=== PATIENT | male | born 1995 | race Caucasian/White ===

== ENCOUNTER 2018-01-21 18:16 | Emergency (ER) | payer OTHER ==
[2018-01-21] MEDS ORDERED: DEXAMETHASONE SOD PHOSPHATE 10 MG/ML 1 ML VIAL IM STA (21:45)
[2018-01-21] MEDS ORDERED: IPRATROPIUM-ALBUTEROL 3 ML NEB INHALATION STA (21:45)
--- NOTE | 2018-01-21 21:47 | ED ---
General Adult HPI - General Chief complaint: Upper Respiratory Infection Stated complaint: vomiting/congestion Time Seen by Provider: 01/21/18 21:41 Source: patient, RN notes reviewed, old records reviewed Mode of arrival: ambulatory Limitations: no limitations - History of Present Illness Initial comments: 22 -year-old male presents with 3 days of nasal congestion, cough, sore throat and nausea. Patient states his cough is nonproductive. Nasal discharge is clear. No fever or chills. No chest pain. He is complaining of some dyspnea associated with his cough. Has no history of asthma. No chronic medical problems. Patient is eating and drinking normally. - Related Data Home Medications Medication Instructions Recorded Confirmed Phenyleph/Acetaminophn/Doxylam 2 cap PO BID 01/21/18 01/21/18 [Vicks Dayquil-Nyquil Sinex Cap] Pseudoephedrine HCl 30 mg PO DAILY 01/21/18 01/21/18 Previous Rx's Medication Instructions Recorded Albuterol Inhaler [Ventolin Hfa 1 - 2 puff INHALATION Q4HR PRN #1 01/21/18 Inhaler] inhaler methylPREDNISolone Dose Pack 4 mg PO DIRECTED #21 package 01/21/18 [Medrol Dose Pack] Allergies Allergy/AdvReac Type Severity Reaction Status Date / Time No Known Allergies Allergy Verified 01/21/18 21:53 Review of Systems ROS Statement: Those systems with pertinent positive or pertinent negative responses have been documented in the HPI. ROS Other: All systems not noted in ROS Statement are negative. Past Medical History Past Medical History: No Reported History History of Any Multi-Drug Resistant Organisms: None Reported Past Surgical History: No Surgical Hx Reported Past Psychological History: No Psychological Hx Reported Smoking Status: Never smoker Past Alcohol Use History: Rare Past Drug Use History: None Reported General Exam Limitations: no limitations General appearance: alert, in no apparent distress Head exam: Present: atraumatic, normocephalic Eye exam: Present: normal appearance, PERRL ENT exam: Present: mucous membranes moist, other (Clear rhinorrhea, mild pharyngeal erythema, no tonsillar swelling or exudate) Neck exam: Present: normal inspection. Absent: tenderness, meningismus Respiratory exam: Present: other (Bronchospastic cough). Absent: respiratory distress Cardiovascular Exam: Present: regular rate, normal rhythm GI/Abdominal exam: Present: soft. Absent: distended, tenderness, guarding Extremities exam: Present: normal inspection, normal capillary refill. Absent: pedal edema Neurological exam: Present: alert, oriented X3, CN II-XII intact. Absent: motor sensory deficit Psychiatric exam: Present: normal affect, normal mood Skin exam: Present: warm, dry, intact. Absent: cyanosis, diaphoretic Course Vital Signs 01/21/18 19:00 Temperature 98.7 F Pulse Rate 90 Respiratory 18 Rate Blood Pressure 149/85 O2 Sat by Pulse 99 Oximetry Medical Decision Making - Medical Decision Making 22-year-old male with nasal congestion, sore throat, and cough. Patient does have some mild dyspnea. He has proximal past cough. Given albuterol and Decadron in the emergency department. On reevaluation he is feeling better, no dyspnea. Patient receives chest x-ray the emergency department which is negative for focal pneumonia. He will be treated for viral upper respiratory tract infection and bronchospasm. Given Medrol Dosepak and albuterol. Disposition Clinical Impression: Viral infection, Bronchitis Disposition: HOME SELF-CARE Condition: Good Instructions: Upper Respiratory Infection (ED), Acute Bronchitis (ED) Prescriptions: Albuterol Inhaler [Ventolin Hfa Inhaler] 1 - 2 puff INHALATION Q4HR PRN #1 inhaler PRN Reason: Shortness Of Breath methylPREDNISolone Dose Pack [Medrol Dose Pack] 4 mg PO DIRECTED #21 package Is patient prescribed a controlled substance at d/c from ED?: No Referrals: Sawyer Dowell MD [Primary Care Provider] - 1-2 days Time of Disposition: 22:43
--- NOTE | 2018-01-21 22:34 | XR ---
EXAMINATION TYPE: XR chest 2V DATE OF EXAM: 01/21/2018 COMPARISON: 05/30/2007 HISTORY: Cough TECHNIQUE: Frontal and lateral views of the chest are obtained. FINDINGS: Heart and mediastinum are normal. Lungs are clear. Diaphragm is normal. Bony thorax appear s normal. IMPRESSION: Normal chest. No change.
[2018-01-21 22:57] VITALS: BP 137/80; PULSE 88; RESP 18; TEMP 98.7
== END 2018-01-21 22:50 | disposition home or self-care (01) ==
LOC: EC 18:16
DX: J40 Bronchitis, not specified as acute or chronic (principal); J98.01 Acute bronchospasm; J06.9 Acute upper respiratory infection, unspecified; R11.2 Nausea with vomiting, unspecified; Z79.899 Other long term (current) drug therapy
CPT/HCPCS: 94640; 71046; 99284; 96372; J1100

== ENCOUNTER 2021-01-07 16:42 | Emergency (ER) | payer BC ==
--- NOTE | 2021-01-07 17:52 | XR ---
EXAMINATION TYPE: XR ankle complete RT DATE OF EXAM: 01/07/2021 COMPARISON: NONE HISTORY: Swelling TECHNIQUE: 3 views FINDINGS: Ankle mortise is anatomic. I see no fracture nor dislocation. Joint spaces are normal. IMPRESSION: Negative right ankle exam. No fracture. Minimal lateral soft tissue swelling.
--- NOTE | 2021-01-07 19:04 | ED ---
General Adult HPI - General Chief complaint: Extremity Injury, Lower Stated complaint: rt ankle injury Time Seen by Provider: 01/07/21 18:42 Source: patient, RN notes reviewed Mode of arrival: ambulatory Limitations: no limitations - History of Present Illness Initial comments: 25-year-old male presents to the emergency room for a chief complaint of right foot pain. Patient rolled his ankle about a week ago but has been having pain in his foot. States he noticed bruising that just started in the past couple days. Patient wants to make sure it is not broken. States it is somewhat tender on the lateral aspect of the foot. He has been able to walk on it.Patient has no other complaints at this time including shortness of breath, chest pain, abdominal pain, nausea or vomiting, headache, or visual changes. - Related Data Home Medications Medication Instructions Recorded Confirmed Phenyleph/Acetaminophn/Doxylam 2 cap PO BID 01/21/18 01/21/18 [Vicks Dayquil-Nyquil Sinex Cap] Pseudoephedrine HCl 30 mg PO DAILY 01/21/18 01/21/18 Previous Rx's Medication Instructions Recorded Albuterol Inhaler (Mhu) [Ventolin 1 - 2 puff INHALATION Q4HR PRN #1 01/21/18 Hfa Inhaler (Mhu)] inhaler methylPREDNISolone Dose Pack 4 mg PO DIRECTED #21 package 01/21/18 [Medrol Dose Pack] Allergies Allergy/AdvReac Type Severity Reaction Status Date / Time No Known Allergies Allergy Verified 01/07/21 16:58 Review of Systems ROS Statement: Those systems with pertinent positive or pertinent negative responses have been documented in the HPI. ROS Other: All systems not noted in ROS Statement are negative. Past Medical History Past Medical History: No Reported History History of Any Multi-Drug Resistant Organisms: None Reported Past Surgical History: No Surgical Hx Reported Past Psychological History: No Psychological Hx Reported Smoking Status: Never smoker Past Alcohol Use History: Rare Past Drug Use History: None Reported General Exam Limitations: no limitations General appearance: alert, in no apparent distress Head exam: Present: atraumatic Eye exam: Present: normal appearance, PERRL, EOMI. Absent: scleral icterus, conjunctival injection ENT exam: Present: normal exam, mucous membranes moist Neck exam: Present: normal inspection, full ROM. Absent: tenderness Respiratory exam: Present: normal lung sounds bilaterally. Absent: respiratory distress, wheezes Cardiovascular Exam: Present: regular rate, normal rhythm, normal heart sounds Extremities exam: Present: tenderness (minimal tenderness to the dorsal lateral aspect of the right foot however now over the fifth metatarsal. No tenderness of the ankle.), normal capillary refill (Capillary refill less than 2 seconds, DP pulse 2+ right lower extremity), joint swelling (minimal ecchymosis noted of the dorsal distal right foot.) Course Vital Signs 01/07/21 16:56 Temperature 97.9 F Pulse Rate 86 Respiratory 20 Rate Blood Pressure 172/92 O2 Sat by Pulse 99 Oximetry Medical Decision Making - Medical Decision Making Right foot and ankle x-rays are negative. Patient likely has a sprain of the right foot. Given he has been walking on this and symptoms started a week ago I do not suspect occult fracture. He will follow up with primary care or thopedics. He will return here for any worsening symptoms. Disposition Clinical Impression: Foot contusion Disposition: HOME SELF-CARE Condition: Good Instructions (If sedation given, give patient instructions): Foot Sprain (ED) Additional Instructions: Please take Motrin and Tylenol for pain. Rest ice and elevate the right foot. Follow-up with orthopedics. Return to the emergency room for any worsening symptoms. Is patient prescribed a controlled substance at d/c from ED?: No Referrals: Sawyer Dowell MD [Primary Care Provider] - 1-2 days Lindsay Teague DO [Doctor of Osteopathic Medicine] - 1-2 days Time of Disposition: 19:13
--- NOTE | 2021-01-07 19:04 | XR ---
EXAMINATION TYPE: XR foot complete RT DATE OF EXAM: 01/07/2021 COMPARISON: NONE HISTORY: Foot pain and swelling TECHNIQUE: 3 views FINDINGS: Metatarsals are intact. I see no fracture nor dislocation. IMPRESSION: Negative right foot exam. No fracture.
[2021-01-07 19:29] VITALS: BP 162/89; PULSE 81; RESP 18; TEMP 97.8
== END 2021-01-07 19:29 | disposition home or self-care (01) ==
LOC: EC 16:42
DX: S90.31XA Contusion of right foot, initial encounter (principal); X58.XXXA Exposure to other specified factors, initial encounter
CPT/HCPCS: 99283

== ENCOUNTER 2021-06-24 16:49 | Emergency (ER) | payer BC ==
[2021-06-24 17:12] VITALS: RESP 18; TEMP 98.7
--- NOTE | 2021-06-24 17:59 | XR ---
EXAMINATION TYPE: XR chest 2V DATE OF EXAM: 06/24/2021 COMPARISON: 01/21/2018 HISTORY: Pain TECHNIQUE: 2 view FINDINGS: Heart and mediastinum are normal. Lungs are clear. Diaphragm is normal. Bony thorax appears normal. IMPRESSION: Multiple chest but no change.
[2021-06-24] MEDS ORDERED: IPRATROPIUM-ALBUTEROL 3 ML NEB INHALATION STA (20:00)
[2021-06-24] MEDS ORDERED: BENZONATATE 100 MG CAP PO STA (20:00)
[2021-06-24] MEDS ORDERED: predniSONE 20 MG TAB PO STA (20:00)
--- NOTE | 2021-06-24 20:01 | ED ---
URI HPI - General Chief Complaint: Upper Respiratory Infection Stated Complaint: SOB Time Seen by Provider: 06/24/21 19:30 Source: patient Mode of arrival: ambulatory Limitations: no limitations - History of Present Illness Initial Comments: 25-year-old male presents emergency department for upper respiratory symptoms for the past 2 weeks. Admits to nasal congestion, sinus pressure, sore throat and a cough. Denies any sick contacts. He is taking Dayquil at home for symptoms without any improvement. Denies fevers. No chest pain. No history of pulmonary or cardiac issues. He is not vaccinated against Covid. No history of asthma. Patient is a nonsmoker. He has had some posttussive emesis. No other alleviating, precipitating or modifying factors - Related Data Home Medications Medication Instructions Recorded Confirmed Phenyleph/Acetaminophn/Doxylam 2 cap PO BID 01/21/18 01/21/18 [Vicks Dayquil-Nyquil Sinex Cap] Pseudoephedrine HCl 30 mg PO DAILY 01/21/18 01/21/18 Previous Rx's Medication Instructions Recorded Albuterol Inhaler (Mhu) [Ventolin 1 - 2 puff INHALATION Q4HR PRN #1 01/21/18 Hfa Inhaler (Mhu)] inhaler methylPREDNISolone Dose Pack 4 mg PO DIRECTED #21 package 01/21/18 [Medrol Dose Pack] Albuterol Inhaler [Ventolin Hfa 1 puff INHALATION RT-QID #8 gm 06/24/21 Inhaler] Benzonatate [Tessalon Perles] 100 mg PO TID PRN #30 capsule 06/24/21 predniSONE [Deltasone] 20 mg PO BID #10 tab 06/24/21 Allergies Allergy/AdvReac Type Severity Reaction Status Date / Time No Known Allergies Allergy Verified 01/07/21 16:58 Review of Systems ROS Statement: Those systems with pertinent positive or pertinent negative responses have been documented in the HPI. ROS Other: All systems not noted in ROS Statement are negative. Past Medical History Past Medical History: No Reported History History of Any Multi-Drug Resistant Organisms: None Reported Past Surgical History: No Surgical Hx Reported Past Psychological History: No Psychological Hx Reported Smoking Status: Never smoker Past Alcohol Use History: Rare Past Drug Use History: None Reported General Exam Limitations: no limitations General appearance: alert, in no apparent distress Head exam: Present: atraumatic, normocephalic, normal inspection Eye exam: Present: normal appearance, PERRL, EOMI. Absent: scleral icterus, conjunctival injection, periorbital swelling ENT exam: Present: normal exam, mucous membranes moist Neck exam: Present: normal inspection. Absent: tenderness, meningismus, lymphadenopathy Respiratory exam: Present: normal lung sounds bilaterally, other (bronchospastic cough). Absent: respiratory distress, wheezes, rales, rhonchi, stridor Cardiovascular Exam: Present: regular rate, normal rhythm, normal heart sounds. Absent: systolic murmur, diastolic murmur, rubs, gallop, clicks GI/Abdominal exam: Present: soft, normal bowel sounds. Absent: distended, tenderness, guarding, rebound, rigid Extremities exam: Present: normal inspection, full ROM, normal capillary refill. Absent: tenderness, pedal edema, joint swelling, calf tenderness Back exam: Present: normal inspection Neurological exam: Present: alert, oriented X3, CN II-XII intact Psychiatric exam: Present: normal affect, normal mood Skin exam: Present: warm, dry, intact, normal color. Absent: rash Course Vital Signs 06/24/21 06/24/21 06/24/21 17:10 20:11 20:20 Temperature 98.7 F Pulse Rate 83 80 78 Respiratory 18 18 Rate Blood Pressure 130/77 128/71 O2 Sat by Pulse 98 Oximetry 06/24/21 20:22 Temperature Pulse Rate 80 Respiratory Rate Blood Pressure O2 Sat by Pulse Oximetry Medical Decision Making - Medical Decision Making Upon arrival patient was placed into room 30. A thorough history and physical exam was performed. Lung sounds are clear. No signs of respiratory distress. Patient is given a DuoNeb breathing treatment for bronchospasm. A swab for Covid which is negative. Chest x-ray negative for pneumonia. Patient will be treated with prednisone, albuterol inhaler and Tessalon Perles. Instructed follow up with his primary care doctor and return for any new or worsening symptoms. Patient agreed to treatment and he was discharged home in stable condition - Lab Data Lab Results 06/24/21 Range/Units 17:15 Coronavirus (PCR) Not Detected (Not Detectd) Disposition Clinical Impression: Cough, Bronchospasm Disposition: HOME SELF-CARE Condition: Stable Instructions (If sedation given, give patient instructions): Upper Respiratory Infection (ED) Additional Instructions: Take the medications as prescribed. Follow up with your doctor in 2-4 days and return for any new or worsening symptoms . Prescriptions: predniSONE [Deltasone] 20 mg PO BID #10 tab Benzonatate [Tessalon Perles] 100 mg PO TID PRN #30 capsule PRN Reason: Cough Albuterol Inhaler [Ventolin Hfa Inhaler] 1 puff INHALATION RT-QID #8 gm Is patient prescribed a controlled substance at d/c from ED?: No Referrals: Sawyer Dowell MD [Primary Care Provider] - 1-2 days Time of Disposition: 20:23
[2021-06-24 20:14] VITALS: PULSE 80
[2021-06-24 20:40] VITALS: BP 128/71
== END 2021-06-24 20:42 | disposition home or self-care (01) ==
LOC: EC 16:49
DX: J98.01 Acute bronchospasm (principal); Z20.822 Contact with and (suspected) exposure to COVID-19
CPT/HCPCS: 94640; 87635; 71046; 99285; J7512

== ENCOUNTER 2022-08-12 22:11 | Emergency (ER) | payer BC ==
[2022-08-12 22:34] LABS: Basophils % (A) 0 %; Eosinophils # (A) 0.4 k/uL (0-0.7); Eosinophils % (A) 4 %; HCT 48.1 % (39.0-53.0); HGB 16.2 gm/dL (13.0-17.5); Lymphocytes # (A) 5.3 k/uL (1.0-4.8); Lymphocytes % (A) 51 %; MCHC 33.7 g/dL (31.0-37.0); MCV 91.8 fL (80.0-100.0); Mean Platelet Volume 7.8; Monocytes # (A) 0.6 k/uL (0-1.0); Monocytes % (A) 6 %; Neutrophils # (A) 3.9 k/uL (1.3-7.7); Neutrophils % (A) 37 %; Platelet Count 262 k/uL (150-450); RBC 5.25 m/uL (4.30-5.90); RDW 12.4 % (11.5-15.5); WBC 10.5 k/uL (3.8-10.6)
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
[2022-08-12 22:53] LABS: Prothrombin Time 10.3 sec (9.0-12.0)
[2022-08-12 22:56] LABS: ALT 20 U/L (4-49); AST 22 U/L (17-59); African American GFR (CKD) >90 (>60 ml/min/1.73 sqM); Albumin 4.7 g/dL (3.5-5.0); Alkaline Phosphatase 66 U/L (38-126); Anion Gap 13 mmol/L; Blood Urea Nitrogen 16 mg/dL (9-20); Calcium 9.6 mg/dL (8.4-10.2); Carbon Dioxide 23 mmol/L (22-30); Chloride 106 mmol/L (98-107); Glucose 101 mg/dL (74-99); Magnesium 1.8 mg/dL (1.6-2.3); Non-African American GFR(CKD) >90 (>60 ml/min/1.73 sqM); Potassium 3.5 mmol/L (3.5-5.1); Sodium 142 mmol/L (137-145); Total Bilirubin 0.6 mg/dL (0.2-1.3); Total Protein 8.1 g/dL (6.3-8.2)
--- NOTE | 2022-08-12 23:33 | XR ---
EXAMINATION TYPE: XR chest 2V DATE OF EXAM: 08/12/2022 COMPARISON: 06/24/2021 INDICATION: Chest pain TECHNIQUE: Frontal and lateral views of the chest are obtained. FINDINGS: The heart size is normal. The pulmonary vasculature is normal. The lungs are clear. IMPRESSION: 1. No acute pulmonary process.
[2022-08-13 00:44] VITALS: BP 134/87; PULSE 68; RESP 16; TEMP 98.2
== END 2022-08-13 00:30 | disposition home or self-care (01) ==
LOC: EC 22:11
DX: F43.9 Reaction to severe stress, unspecified (principal)
CPT/HCPCS: 36415; 71046; 80053; 83735; 84484; 85025; 85610; 85730; 93005; 99285

== ENCOUNTER 2023-02-14 16:51 | Emergency (ER) | payer BC, OTHER ==
--- NOTE | 2023-02-14 17:00 | ED ---
URI HPI - General Stated Complaint: cough Time Seen by Provider: 02/14/23 16:59 Source: patient, RN notes reviewed - History of Present Illness Initial Comments: Patient is a 27-year-old male presented ER chief complaint of cough. Patient states it's been going on for about a week. Patient denies any chest pain but does endorse mild shortness of breath with coughing. Patient does state that his cough is worse at night and in the morning. He does report nasal drainage. Patient denies any fevers, chills, night sweats. - Related Data Home Medications Medication Instructions Recorded Confirmed Phenyleph/Acetaminophn/Doxylam 2 cap PO BID 01/21/18 01/21/18 [Vicks Dayquil-Nyquil Sinex Cap] Pseudoephedrine HCl 30 mg PO DAILY 01/21/18 01/21/18 Previous Rx's Medication Instructions Recorded Albuterol Inhaler [Ventolin Hfa 1 - 2 puff INHALATION Q4HR PRN #1 01/21/18 Inhaler] inhaler methylPREDNISolone Dose Pack 4 mg PO DIRECTED #21 package 01/21/18 [Medrol Dose Pack] Albuterol Inhaler [Ventolin Hfa 1 puff INHALATION RT-QID #8 gm 06/24/21 Inhaler] Benzonatate [Tessalon Perles] 100 mg PO TID PRN #30 capsule 06/24/21 predniSONE [Deltasone] 20 mg PO BID #10 tab 06/24/21 Allergies Allergy/AdvReac Type Severity Reaction Status Date / Time No Known Allergies Allergy Verified 02/14/23 17:04 Review of Systems ROS Statement: Those systems with pertinent positive or pertinent negative responses have been documented in the HPI. ROS Other: All systems not noted in ROS Statement are negative. Past Medical History Past Medical History: No Reported History Additional Past Medical History / Comment(s): autism History of Any Multi-Drug Resistant Organisms: None Reported Past Surgical History: No Surgical Hx Reported Past Psychological History: No Psychological Hx Reported Smoking Status: Never smoker Past Alcohol Use History: Occasional Past Drug Use History: None Reported General Exam - General Exam Comments Initial Comments: Visual Physical Exam Vital signs reviewed General: Well-appearing, nontoxic, no acute distress. Head: Normocephalic, atraumatic Eyes: PERRLA, EOMI ENT: Airway patent Chest: Nonlabored breathing Skin: No visual rash, normal skin tone Neuro: Alert and oriented 3 Musculoskeletal: No gross abnormalities General appearance: alert, in no apparent distress ENT exam: Present: normal exam, mucous membranes moist Respiratory exam: Present: normal lung sounds bilaterally. Absent: respiratory distress, wheezes, rales, rhonchi, stridor Cardiovascular Exam: Present: regular rate, normal rhythm, normal heart sounds. Absent: systolic murmur, diastolic murmur, rubs, gallop, clicks Neurological exam: Present: alert, oriented X3, CN II-XII intact Psychiatric exam: Present: normal affect, normal mood Skin exam: Present: warm, dry, intact, normal color. Absent: rash Course Vital Signs 02/14/23 17:01 Temperature 98.0 F Pulse Rate 88 Respiratory 16 Rate Blood Pressure 146/88 O2 Sat by Pulse 96 Oximetry Medical Decision Making - Medical Decision Making I performed the quick note portion of the exam. Electronically signed by Honey Marquez PA-C Was pt. sent in by a medical professional or institution ([facility], [facility], urgent care, hospital, or [facility]...) When possible be specific @ -No Did you speak to anyone other than the patient for history (EMS, parent, family, police, friend...)? What history was obtained from this source @ -No Did you review nursing and triage notes (agree or disagree)? Why? @ -I reviewed and agree with nursing and triage notes Were old charts reviewed (outside hosp., previous admission, EMS record, old EKG, old radiological studies, urgent care reports/EKG's, [facility] records)? Report findings @ -No old charts were reviewed Differential Diagnosis (chest pain, altered mental status, abdominal pain women, abdominal pain men, vaginal bleeding, weakness, fever, dyspnea, syncope, headache, dizziness, GI bleed, back pain, seizure, CVA, palpatations, mental health, musculoskeletal)? @ -COVID-19, RSV, influenza, pneumonia, viral sinusitis EKG interpreted by me (3pts min.). @ -None X-rays interpreted by me (1pt min.). @ -Chest x-rays interpreted by me shows no acute cardiopulmonary process. CT interpreted by me (1pt min.). @ -None done U/S interpreted by me (1pt. min.). @ -None done What testing was considered but not performed or refused? (CT, X-rays, U/S, labs)? Why? @ -None What meds were considered but not given or refused? Why? @ -None Did you discuss the management of the patient with other professionals (professionals i.e. , PA, [facility], lab, RT, psych nurse, social insurance administrator, trial lawyer, teacher, sales promotion officer, returned case inspector)? Give summary @ -No Was smoking cessation discussed for >3mins.? @ -No Was critical care preformed (if so, how long)? @ -No Were there social determinants of health that impacted care today? How? (Homelessness, low income, unemployed, alcoholism, drug addiction, transportation, low edu. Level, literacy, decrease access to med. care, alf, rehab)? @ -No Was there de-escalation of care discussed even if they declined (Discuss DNR or withdrawal of care, Hospice)? DNR status @ -No What co-morbidities impacted this encounter? (DM, HTN, Smoking, COPD, CAD, Cancer, CVA, ARF, Chemo, Hep., AIDS, mental health diagnosis, sleep apnea, morbid obesity)? @ -None Was patient admitted / discharged? Hospital course, mention meds given and route, prescriptions, significant lab abnormalities, going to OR and other pertinent info. @ -Discharge. Viral swabs to the ER were negative. Chest x-ray interpretation shows no acute process. Patient's vital signs are stable. I advised patient to use [id number] Tylenol and Motrin for pain and fever control. I suggested he take an anti-histamine for post nasal drip. Patient be discharged in stable condition with follow-up to PCP. Return parameters were discussed. Patient expressed understanding and agreement with care plan. Undiagnosed new problem with uncertain prognosis? @ -No Drug Therapy requiring intensive monitoring for toxicity (Heparin, Nitro, Insulin, Cardizem)? @ -No Were any procedures done? @ -No Diagnosis/symptom? @ -Viral sinusitis/postnasal drip Acute, or Chronic, or Acute on Chronic? @ -Acute Uncomplicated (without systemic symptoms) or Complicated (systemic symptoms)? @ -Uncomplicated Side effects of treatment? @ -No Exacerbation, Progression, or Severe Exacerbation? @ -No Poses a threat to life or bodily function? How? (Chest pain, [place], [place], pneumonia, PE, COPD, DKA, ARF, appy, cholecystitis, CVA, Diverticulitis, Homicidal, Suicidal, threat to staff... and all critical care pts) @ -No - Lab Data Lab Results 02/14/23 Range/Units 17:04 Influenza Type A (PCR) Not Detected (Not Detectd) Influenza Type B (PCR) Not Detected (Not Detectd) RSV (PCR) Not Detected (Not Detectd) SARS-CoV-2 (PCR) Not Detected (Not Detectd) - Radiology Data Radiology results: report reviewed, image reviewed Disposition Clinical Impression: Viral sinusitis Disposition: HOME SELF-CARE Condition: Stable Additional Instructions: Please use [id number] Tylenol and Motrin for fever and symptom control. Please return to the ER for any new or worsening symptoms. Is patient prescribed a controlled substance at d/c from ED?: No Referrals: Sawyer Dowell [Primary Care Provider] - 1-2 days Time of Disposition: 18:54
[2023-02-14 17:12] VITALS: BP 146/88; PULSE 88; RESP 16; TEMP 98
--- NOTE | 2023-02-14 17:34 | XR ---
EXAMINATION TYPE: XR chest 2V DATE OF EXAM: 02/14/2023 5:13 PM CLINICAL INDICATION:Male, 27 years old with history of cough; COMPARISON: 08/12/2022 TECHNIQUE: XR chest 2V Frontal and lateral views of the chest. FINDINGS: Lungs/Pleura: There is no evidence of pleural effusion, focal consolidation, or pneumothorax. Pulmonary vascularity: Unremarkable. Heart/mediastinum: Cardiomediastinal silhouette is unremarkable. Musculoskeletal: No acute osseous pathology. Other findings: None IMPRESSION: No acute cardiopulmonary disease/process.
== END 2023-02-14 19:13 | disposition home or self-care (01) ==
LOC: EC 16:51
DX: J32.9 Chronic sinusitis, unspecified (principal); Z20.822 Contact with and (suspected) exposure to COVID-19
CPT/HCPCS: 71046; 87636; 99283

== ENCOUNTER 2024-04-11 14:48 | Inpatient (IN) | payer OTHER ==
--- NOTE | 2024-04-11 15:37 | ED ---
General Adult HPI - General Chief complaint: Psychiatric Symptoms Stated complaint: Mental Health Time Seen by Provider: 04/11/24 15:06 Source: patient Mode of arrival: ambulatory - History of Present Illness Initial comments: Dictation was produced using [employer] dictation software. please excuse any grammatical, word or spelling errors. Chief Complaint: 28-year-old male presents to the emergency department with homicidal intent History of Present Illness: Patient is a 28-year-old autistic male presents with mother and significant other. Patient just got fired from his job. Patient was upset made some homicidal threats. Patient called his mother and mother brought patient to the emergency department. Patient states he was fired up because of what happened today. States that he feels apologetic. He does have knives and other weapons at home. Denies any suicidal ideation. No visual auditory hallucinations. Patient has not been in the emergency department for anything like this in the past. The ROS documented in this emergency department record has been reviewed and confirmed by me. Those systems with pertinent positive or negative responses have been documented in the HPI. All other systems are other negative and/or noncontributory. - Related Data Home Medications Medication Instructions Recorded Confirmed No Known Home Medications 04/11/24 04/11/24 Allergies Allergy/AdvReac Type Severity Reaction Status Date / Time lactose AdvReac Nausea & Verified 04/11/24 17:02 Vomiting Review of Systems ROS Statement: Those systems with pertinent positive or pertinent negative responses have been documented in the HPI. ROS Other: All systems not noted in ROS Statement are negative. Past Medical History Past Medical History: No Reported History Additional Past Medical History / Comment(s): autism History of Any Multi-Drug Resistant Organisms: None Reported Past Surgical History: No Surgical Hx Reported Past Psychological History: ADD/ADHD Smoking Status: Never smoker Past Alcohol Use History: Occasional Past Drug Use History: None Reported General Exam - General Exam Comments Initial Comments: General: Well-appearing, nontoxic, no acute distress. Head: Normocephalic, atraumatic Eyes: PERRLA, EOMI ENT: Airway patent Chest: Nonlabored breathing Skin: No visual rash, normal skin tone Neuro: Alert and oriented 3 Musculoskeletal: No gross abnormalities Course Vital Signs 04/11/24 14:58 Temperature 98.2 F Pulse Rate 81 Respiratory 16 Rate Blood Pressure 140/92 O2 Sat by Pulse 98 Oximetry Medical Decision Making - Medical Decision Making Was pt. sent in by a medical professional or institution (, PA, [employer], urgent care, hospital, or care home...) When possible be specific @ -No Did you speak to anyone other than the patient for history (EMS, parent, family, police, friend...)? What history was obtained from this source @ -No Did you review nursing and triage notes (agree or disagree)? Why? @ -I reviewed and agree with nursing and triage notes Were old charts reviewed (outside hosp., previous admission, EMS record, old EKG, old radiological studies, urgent care reports/EKG's, care home records)? Report findings @ -No old charts were reviewed Differential Diagnosis (chest pain, altered mental status, abdominal pain women, abdominal pain men, vaginal bleeding, musculoskeletal, weakness, fever, dyspnea, syncope, headache, dizziness, GI bleed, back pain, seizure, CVA, palpatations, mental health)? @ -Differential Mental Health: Depression, anxiety, bipolar, psychosis, schizophrenia, borderline personality, situational depression, adjustment disorder, behavioral disorder, brain tumor, malingering, substance abuse, encephalopathy, medication reaction, dementia, hypothyroidism, degenerative neurologic disorder, lupus.... This is not meant to be all-inclusive list EKG interpreted by me (3pts min.). @ -None done X-rays interpreted by me (1pt min.). @ -None done CT interpreted by me (1pt min.). @ -None done U/S interpreted by me (1pt. min.). @ -None done What testing was considered but not performed or refused? (CT, X-rays, U/S, labs)? Why? @ -None What meds were considered but not given or refused? Why? @ -None Was smoking cessation discussed for >3mins.? @ -No Were there social determinants of health that impacted care today? How? (Homelessness, low income, unemployed, alcoholism, drug addiction, transportation, low edu. Level, literacy, decrease access to med. care, detention, rehab)? @ -No Was there de-escalation of care discussed even if they declined (Discuss DNR or withdrawal of care, Hospice)? DNR status @ -No What co-morbidities impacted this encounter? (DM, HTN, Smoking, COPD, CAD, Cancer, CVA, ARF, Chemo, Hep., AIDS, mental health diagnosis, sleep apnea, morbid obesity)? @ -Autism Was patient admitted / discharged? Hospital course, mention meds given and route, prescriptions, significant lab abnormalities, going to OR and other pertinent info. @ -28-year-old male presents emergency department with homicidal ideation. Vital signs stable. Physical examination is benign. Patient medically cleared for EPS evaluation. Patient eval by EPS will be admitted to inpatient psych Did you discuss the management of the patient with other professionals (professionals i.e. , PA, [employer], lab, RT, psych nurse, social services technician, oracle technical developer, teacher, conservation science officer, case mgr)? Give summary @ -No Was critical care preformed (if so, how long)? @ -No Undiagnosed new problem with uncertain prognosis? @ -No Drug Therapy requiring intensive monitoring for toxicity (Heparin, Nitro, Insulin, Cardizem)? @ -No Were any procedures done? @ -No Diagnosis/symptom? Acute, or Chronic, or Acute on Chronic? Uncomplicated (without systemic symptoms) or Complicated (systemic symptoms)? @ -Homicidal ideation Side effects of treatment? @ -No Exacerbation, Progression, or Severe Exacerbation? @ -No Poses a threat to life or bodily function? How? (Chest pain, [place], [place], pneumonia, PE, COPD, DKA, ARF, appy, cholecystitis, CVA, Diverticulitis, Homicidal, Suicidal, threat to staff... and all critical care pts) @ -yes Disposition Clinical Impression: Homicidal ideations Disposition: TRANSFER TO PSYCH HOSP/UNIT Condition: Fair Referrals: Sawyer Dowell [Primary Care Provider] - 1-2 days Decision Time: 18:43
[2024-04-11 21:02] LABS: Influenza A Not Detected (Not Detectd); Influenza B Not Detected (Not Detectd); RSV Not Detected (Not Detectd)
[2024-04-11] MEDS ORDERED: traZODone HCL 50 MG TAB PO PRN (22:36)
[2024-04-11] MEDS ORDERED: MAG HYDROX/AL HYDROX/SIMETH 355 ML BOTTLE PO PRN (22:36)
[2024-04-11] MEDS ORDERED: ACETAMINOPHEN TAB 325 MG TAB PO PRN (22:36)
[2024-04-11] MEDS ORDERED: HALOPERIDOL LACTATE 5 MG/ML 1 ML VIAL IM PRN (22:36)
[2024-04-11] MEDS ORDERED: MAGNESIUM HYDROXIDE 2,400 MG/30 ML CUP PO PRN (22:36)
[2024-04-11] MEDS ORDERED: IBUPROFEN 600 MG TAB PO PRN (22:36)
[2024-04-11] MEDS ORDERED: LORazepam 2 MG/ML INJ IM PRN (22:36)
[2024-04-11] MEDS ORDERED: LORazepam 1 MG TAB PO PRN (22:36)
[2024-04-11] MEDS ORDERED: haloperidoL 5 MG TAB PO PRN (22:36)
[2024-04-12 09:46] LABS: Basophils % (A) 0 %; Eosinophils # (A) 0.1 k/uL (0-0.7); Eosinophils % (A) 1 %; Lymphocytes # (A) 2.9 k/uL (1.0-4.8); Lymphocytes % (A) 40 %; MCH 30.2 pg (25.0-35.0); MCHC 32.7 g/dL (31.0-37.0); MCV 92.2 fL (80.0-100.0); Mean Platelet Volume 7.8; Monocytes # (A) 0.5 k/uL (0-1.0); Monocytes % (A) 7 %; Neutrophils # (A) 3.6 k/uL (1.3-7.7); Neutrophils % (A) 50 %; Platelet Count 242 k/uL (150-450); RBC 5.64 m/uL (4.30-5.90); RDW 12.8 % (11.5-15.5); WBC 7.2 k/uL (3.8-10.6)
[2024-04-12 10:03] LABS: ALT 24 U/L (4-49); AST 23 U/L (17-59); African American GFR (CKD) >90 (>60 ml/min/1.73 sqM); Albumin 4.7 g/dL (3.5-5.0); Alkaline Phosphatase 78 U/L (38-126); Anion Gap 13 mmol/L; Blood Urea Nitrogen 14 mg/dL (9-20); Calcium 9.7 mg/dL (8.4-10.2); Carbon Dioxide 25 mmol/L (22-30); Chloride 103 mmol/L (98-107); Glucose 100 mg/dL (74-99); Non-African American GFR(CKD) >90 (>60 ml/min/1.73 sqM); Potassium 3.9 mmol/L (3.5-5.1); Sodium 141 mmol/L (137-145); Total Bilirubin 1.1 mg/dL (0.2-1.3); Total Protein 7.8 g/dL (6.3-8.2)
--- NOTE | 2024-04-12 17:29 | P.HP ---
Psychiatric H&P - . H&P Date: 04/12/24 History & Physical: Allergies Allergy/AdvReac Type Severity Reaction Status Date / Time lactose AdvReac Nausea & Verified 04/11/24 17:02 Vomiting Vital Signs Temp 97.9 F 04/11/24 23:34 Pulse 76 04/11/24 23:34 Resp 17 04/11/24 23:34 BP 136/89 04/11/24 23:34 Pulse Ox 99 04/11/24 23:34 FiO2 Intake & Output 04/11/24 04/12/24 04/12/24 18:59 06:59 18:59 Weight 113.398 kg Laboratory Last Values WBC 7.2 k/uL (3.8-10.6) 04/12/24 09:16 RBC 5.64 m/uL (4.30-5.90) 04/12/24 09:16 Hgb 17.0 gm/dL (13.0-17.5) 04/12/24 09:16 Hct 52.0 % (39.0-53.0) 04/12/24 09:16 MCV 92.2 fL (80.0-100.0) 04/12/24 09:16 MCH 30.2 pg (25.0-35.0) 04/12/24 09:16 MCHC 32.7 g/dL (31.0-37.0) 04/12/24 09:16 RDW 12.8 % (11.5-15.5) 04/12/24 09:16 Plt Count 242 k/uL (150-450) 04/12/24 09:16 MPV 7.8 04/12/24 09:16 Neutrophils % 50 % 04/12/24 09:16 Lymphocytes % 40 % 04/12/24 09:16 Monocytes % 7 % 04/12/24 09:16 Eosinophils % 1 % 04/12/24 09:16 Basophils % 0 % 04/12/24 09:16 Neutrophils # 3.6 k/uL (1.3-7.7) 04/12/24 09:16 Lymphocytes # 2.9 k/uL (1.0-4.8) 04/12/24 09:16 Monocytes # 0.5 k/uL (0-1.0) 04/12/24 09:16 Eosinophils # 0.1 k/uL (0-0.7) 04/12/24 09:16 Basophils # 0.0 k/uL (0-0.2) 04/12/24 09:16 Sodium 141 mmol/L (137-145) 04/12/24 09:16 Potassium 3.9 mmol/L (3.5-5.1) 04/12/24 09:16 Chloride 103 mmol/L (98-107) 04/12/24 09:16 Carbon Dioxide 25 mmol/L (22-30) 04/12/24 09:16 Anion Gap 13 mmol/L 04/12/24 09:16 BUN 14 mg/dL (9-20) 04/12/24 09:16 Creatinine 1.03 mg/dL (0.66-1.25) 04/12/24 09:16 Est GFR (CKD-EPI)AfAm >90 (>60 ml/min/1.73 sqM) 04/12/24 09:16 Est GFR (CKD-EPI)NonAf >90 (>60 ml/min/1.73 sqM) 04/12/24 09:16 Glucose 100 mg/dL (74-99) H 04/12/24 09:16 Calcium 9.7 mg/dL (8.4-10.2) 04/12/24 09:16 Total Bilirubin 1.1 mg/dL (0.2-1.3) 04/12/24 09:16 AST 23 U/L (17-59) 04/12/24 09:16 ALT 24 U/L (4-49) 04/12/24 09:16 Alkaline Phosphatase 78 U/L (38-126) 04/12/24 09:16 Total Protein 7.8 g/dL (6.3-8.2) 04/12/24 09:16 Albumin 4.7 g/dL (3.5-5.0) 04/12/24 09:16 TSH 1.460 mIU/L (0.465-4.680) 04/12/24 09:16 Influenza Type A (PCR) Not Detected (Not Detectd) 04/11/24 20:14 Influenza Type B (PCR) Not Detected (Not Detectd) 04/11/24 20:14 RSV (PCR) Not Detected (Not Detectd) 04/11/24 20:14 SARS-CoV-2 (PCR) Not Detected (Not Detectd) 04/11/24 20:14 04/12/24 17:17 History of Present Illness: Patient is a 28-year-old autistic male presents with mother and . 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 There is a 14-year-old girl who was scantily dressed and made a comment about it he responded trying to be funny and was distracted so due to poor job of starting the needle. She accused him of sexual advances and of being creepy and then she cut herself up saying he did it.. he was quite agitated and made comments about wanting to go back to school and make everybodypayee.. Patient was upset made some homicidal threats. Patient called his mother and mother brought patient to the emergency department. Patient states he was fired up because of what happened today. States that he feels apologetic. He does have knives and other weapons at home. Denies any suicidal ideation. No visual auditory hallucinations. Patient has not been in the emergency department for anything like this in the past.the patient wants to get help he thinks what he really needs is some counseling to understand how to handle situations due to the diagnosis of autism. Social history: The patient is the oldest of 3 boys born to his parents who stayed together and he is for 8 years he is unable to have children they do have 2 dogs as far as he knows his and early development were normal. 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 He li ves in a house with his and 2 dogs. When he is young he was diagnosed with ADHD but did like to treatment the Concerta made him more depressed the Ritalin just didn't help he's never been in the . No legal problem. He says he never really had a problem with alcohol that he might drink 2 shots on a weekend Mental status exam the patient is serious and somewhat of a flat affect coop erative came readily reasonable self-care gait and station are normal.. He is alert. No signs of psychosis and he denies any denies suicidality or homicidality he recognizes that the statements he made were out of bounds and scary. He wants help but not medications. He could remember 3 of 3 objects after 3 minutes. He can name the presidents back to [place]. He can name all the [place] and knew where you're on admission came together. When asked him to subtract 7 from 93 he said 22 country worries coming from I re-repeated and asked him to slow down and he was able to get 86. In spelling world backward he got DLO are realizes that was wrong thought for a while and got DLO ROW. Cats and snakes he abstracted that they are carnivores and have fangs and eat mice. he also abstracted that for the grass looks greener on the other side of the fence it meant water your own grass.he denies now in the past any manic episodes or mood swings Assessment ADHD, autistic spectrum disorder, major depression single episode. Plan: I don't think he needs medications he needs to get into counseling and little time to calm down make sure he is not danger to self or others.I do think it was conteh to hospitalize him because in his rage and agitation he was threatening children. 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 04/12/24 17:20 04/12/24 17:28
[2024-04-12 23:03] LABS: Appearance,Urine Clear (Clear); Bilirubin,Urine Negative (Negative); Blood,Urine Negative (Negative); Color,Urine Light Yellow; Glucose,Urine (UA) Negative (Negative); Ketones,Urine Negative (Negative); Leukocyte Esterase,Urine Negative (Negative); Nitrite,Urine Negative (Negative); PH, Urine 5.5 (5.0-8.0); Protein,Urine Negative (Negative); Specific Gravity,Urine 1.023 (1.001-1.035)
--- NOTE | 2024-04-12 23:43 | P.MDCNMH ---
History of Present Illness H&P Date: 04/12/24 This is a pleasant 28-year-old male who presented to the emergency department with his mother and after getting upset and making some comments of homicidal ideations. Patient was recently fired from his job due to these accusations and patient has been increasingly upset and mother and brought him to the hospital for further evaluation. Patient voluntarily admitted to [facility] for further psychiatric valuation. Patient reports he follows with Dr. Dowell in the outpatient setting with a past medical history of autism, ADD/ADHD. Patient denies illicit drug use or tobacco and reports he very rarely but on occasion will have drinks. REVIEW OF SYSTEMS: CONSTITUTIONAL: No fever, no malaise, no fatigue. HEENT: No recent visual problems or hearing problems. Denied any sore throat. CARDIOVASCULAR: No chest pain, orthopnea, PND, no palpitations, no syncope. PULMONARY: No shortness of breath, no cough, no hemoptysis. GASTROINTESTINAL: No diarrhea, no nausea, no vomiting, no abdominal pain. NEUROLOGICAL: No headaches, no weakness, no numbness. HEMATOLOGICAL: Denies any bleeding or petechiae. GENITOURINARY: Denies any burning micturition, frequency, or urgency. MUSCULOSKELETAL/RHEUMATOLOGICAL: Denies any joint pain, swelling, or any muscle pain. ENDOCRINE: Denies any polyuria or polydipsia. The rest of the 14-point review of systems is negative. PHYSICAL EXAMINATION: GENERAL: The patient is alert and oriented x3, not in any acute distress. Mildly anxious well developed, well nourished. Obese HEENT: Pupils are round and equally reacting to light. EOMI. No scleral icterus. No conjunctival pallor. Normocephalic, atraumatic. No pharyngeal erythema. No thyromegaly. CARDIOVASCULAR: S1 and S2 present. No murmurs, rubs, or gallops. PULMONARY: Chest is clear to auscultation, no wheezing or crackles. ABDOMEN: Soft, nontender, nondistended, normoactive bowel sounds. No palpable organomegaly. MUSCULOSKELETAL: No joint swelling or deformity. EXTREMITIES: No cyanosis, clubbing, or pedal edema. NEUROLOGICAL: Gross neurological examination did not reveal any focal deficits. SKIN: No rashes. Assessment: Homicidal ideations History of autism History of ADD/ADHD Obesity with a BMI of 33.0 GI prophylaxis Full code Plan: Patient was voluntarily admitted to [facility] for further psychiatric evaluation Patient instructed to follow-up with primary care provider on discharge as he reports he has not seen them in a while. Case management/social work on [facility] to work with patient arranging for outpatient counseling Patient has been encouraged to be compliant with medications as needed as well as group therapy sessions and psychiatry evaluation The impression and plan of care has been dictated by Theresa Haq, Nurse Practitioner as directed. Dr. Nathaly MD I have performed a history and examination and MDM of this patient, discussed the same with the dictator, and agree with the dictator's assessment and plan as written ,documented as a scribe. Based on total visit time, I have performed more than 50% of the visit. Past Medical History Past Medical History: No Reported History Additional Past Medical History / Comment(s): autism History of Any Multi-Drug Resistant Organisms: None Reported Past Surgical History: No Surgical Hx Reported Past Psychological History: ADD/ADHD Smoking Status: Never smoker Past Alcohol Use History: Occasional Past Drug Use History: None Reported - Past Family History Mother History Unknown: Yes Medications and Allergies Home Medications Medication Instructions Recorded Confirmed Type No Known Home Medications 04/11/24 04/11/24 History Allergies Allergy/AdvReac Type Severity Reaction Status Date / Time lactose AdvReac Nausea & Verified 04/11/24 17:02 Vomiting Physical Exam Vitals: Vital Signs Temp Pulse Resp BP Pulse Ox 04/11/24 23:34 97.9 F 76 17 136/89 99 04/11/24 14:58 98.2 F 81 16 140/92 98 Cranial Nerve Examination - Cranial Nerves Cranial Nerve I- Olfactory: Intact Cranial Nerve II- Optic: Intact Cranial Nerve III- Oculomotor: Intact Cranial Nerve IV- Trochlear: Intact Cranial Nerve V- Trigeminal: Intact Cranial Nerve - Abducens: Intact Cranial Nerve VII- Facial: Intact Cranial Nerve VIII- Auditory: Intact Cranial Nerve IX- Glossopharyngeal: Intact Cranial Nerve X- Vagus: Intact Cranial Nerve XI- Accessory: Intact Cranial Nerve XII- Hypoglossal: Intact Results CBC & Chem 7: 04/12/24 09:16 04/12/24 09:16
[2024-04-13 07:14] LABS: Chol/HDL Ratio 4.74 Ratio; LDL Cholesterol,Calculated 105.4 mg/dL (0.0-131.0)
--- NOTE | 2024-04-13 07:32 | P.PN ---
Subjective Progress Note Date: 04/13/24 Principal diagnosis: attention deficit disorder inattentive type, autistic spectrum disorder, adjustment disorder with depression History of Present Illness: Patient is a 28-year-old autistic malewith a history of being diagnosed with attention deficit disorder..he denies any homicidal ideas says he slept well last night good appetite has been able to relate to a few of the other patients. He recognizes that he needs help through counseling to predict and react more calmly and improve his self calming techniques. Denies any suicidal ideation. No visual auditory hallucinations. Social history: he has good support from his mom and his wifebut he is intellige nt and understands that even occasional lapse into rage continuing her whole life. Mental status exam the patient is serious and somewhat of a flat affect, cooperative, came readily, reasonable self-care gait and station are normal.. He is alert. No signs of psychosis and he denies suicidality or homicidality. Insight: he recognizes that the statements he made were out of bounds and scary. He wants help but not medications. he is calm with good eye contact insightful and intelligent. Assessment ADHD, autistic spectrum disorder, major depression single episode.rule out intermittent explosive disorder Plan: I don't think he needs medications he needs to get into counseling and little time to calm down make sure he is not danger to self or others.I do think it was conteh to hospitalize him because in his rage and agitation he was threatening children. 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 Objective - Vital Signs Vital signs: Vital Signs Temp 97.9 F 04/11/24 23:34 Pulse 76 04/11/24 23:34 Resp 17 04/11/24 23:34 BP 136/89 04/11/24 23:34 Pulse Ox 99 04/11/24 23:34 FiO2 Intake & Output 04/12/24 04/13/24 04/13/24 18:59 06:59 18:59 Weight 113.398 kg - Labs CBC & Chem 7: 04/12/24 09:16 04/12/24 09:16 Labs: Abnormal Lab Results - Last 24 Hours (Table) 04/12/24 Range/Units 09:16 Glucose 100 H (74-99) mg/dL HDL Cholesterol 35.20 L (40.00-60.00) mg/dL
[2024-04-13 11:57] LABS: Urine Barbiturate Negative (Negative); Urine Cocaine Negative (Negative); Urine Methadone Negative (Negative); Urine Opiates Negative (Negative); Urine Phencyclidine Negative (Negative)
[2024-04-14 10:30] VITALS: BP 145/89; PULSE 105; RESP 16; TEMP 97.3
--- NOTE | 2024-04-14 13:46 | P.DS ---
Providers Date of admission: 04/11/24 21:58 Expected date of discharge: 04/14/24 Attending physician: Sulema Small MD Consults: 04/11/24 22:36 Consult Physician Routine Consulting Provider: [facility] Hospitalists Consult Reason/Comments: H&P and medical Do you want consulting provider notified?: Yes, Notify in am Primary care physician: Sawyer Alex Kut - Discharge Diagnosis(es) (1) Adjustment disorder Current Visit: Yes Status: Acute Priority: High (2) Autism spectrum disorder Current Visit: Yes Status: Chronic Priority: Medium Hospital Course: Admission HPI: Admission note was completed by Dr. Schwartz "Patient is a 28-year-old autistic male presents with mother and . 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 There is a 14-year-old girl who was scantily dressed and made a comment about it he responded trying to be funny and was distracted so due to poor job of starting the needle. She accused him of sexual advances and of being creepy and then she cut herself up saying he did it.. he was quite agitated and made comments about wanting to go back to school and make everybodypayee.. Patient was upset made some homicidal threats. Patient called his mother and mother brought patient to the emergency department. Patient states he was fired up because of what happened today. States that he feels apologetic. He does have knives and other weapons at home. Denies any suicidal ideation. No visual auditory hallucinations. Patient has not been in the emergency department for anything like this in the past.the patient wants to get help he thinks what he really needs is some counseling to understand how to handle situations due to the diagnosis of autism." Hospital course: Upon admission to the unit patient was directable and agreeable to commence treatment and signed adult voluntary form.. Patient got along well with other patients on the unit and followed unit protocol. Decision was made to hold off on psychotropic medications at this time given patient's symptoms previously were directly related to psychosocial stressor. Patient was encouraged and was agreeable with outpatient therapy and counseling to help navigate these stressors. Patient spoke of his stressors and engaged in therapy both group and individual. Patient was also seen by medical team for history and physical exam. Throughout the course of the hospitalization patient gradually improved with regards to mood, anxiety, sleep and returned back to their baseline level of functioning. On the day of discharge patient denied any suicidal or homicidal ideations intent or plan denied any auditory or visual hallucinations. The patient denied any access to guns or weapons. Patient denied any paranoia and did not endorse any delusions. Patient does not have a significant history of substance abuse and was counseled on abstaining from all substances including alcohol and marijuana. Patient was also counseled on the medications and need for regular compliance and was encouraged to follow-up with their outpatient appointment for mental health and also for primary care. Prior to discharge a family meeting will be arranged by social secretary to answer any questions and ensure safety upon discharge including making sure that guns/weapons are either removed from the home or locked away. Patient to be discharged back home with and will follow-up with [facility]. Mental status exam: General Appearance: Patient appears to be stated age is alert, pleasant, and cooperative. Patient is in no acute distress and has fair hygiene and grooming Behavior: Patient is calmly seated without any agitated behavior. Speech: Patient's speech is fluent and nonpressured. Mood/Affect: Patient reports their mood is "good", affect is congruent and euthymic. Suicidality/Homicidality: Patient denies having any suicidal or homicidal ideation intent or plan. Perceptions: Patient denies any auditory or visual hallucinations. Though content/process: There is no evidence of any delusional thought content and thought process is linear and goal-directed. More future oriented Memory and concentration: AOX3, grossly intact for the purposes of this session. Can spell "WORLD" backwards correctly. Judgment and insight: Chronically poor, however has improved with guarded prognosis Impression: Adjustment disorder Autism spectrum disorder Plan: -Continue with discharge today as patient has improved and stabilized psychiatrically and is not currently an imminent threat to themself and/or others. -Continue medications: None, discussed with patient the potential to start Abilify for mood stabilization however will defer this to outpatient. -Patient was counseled on the need for medication compliance and appropriate follow-up at mental health and also primary care for medical issues. Patient verbalized understanding and agreed. -Social work to help coordinate patients discharge today arrange for and conduct family meeting to ensure safety upon discharge and answer any questions/concerns. also to ensure safe home environment that guns/weapons are either removed from the home or locked away. Social work also to arrange for patients follow up appointments with [facility] for psychiatric care along with follow up with primary care provider. -Patient counseled on abstaining from recreational drugs and marijuana and alcohol. Was informed/educated on the adverse effects on their physical and mental health. Patient verbally agreed and understood. -Patient was instructed to return to the hospital or seek immediate medical care if their psychiatric or medical symptoms do worsen or reoccur. Abnormal Labs 04/12/24 09:16 Glucose 100 H HDL Cholesterol 35.20 L Vital Signs Temp 97.3 F L 04/14/24 10:29 Pulse 105 H 04/14/24 10:29 Resp 16 04/14/24 10:29 BP 145/89 04/14/24 10:29 Pulse Ox 99 04/14/24 10:29 FiO2 Intake & Output 04/13/24 04/14/24 04/14/24 18:59 06:59 18:59 Weight 115.1 kg Allergies Allergy/AdvReac Type Severity Reaction Status Date / Time lactose AdvReac Nausea & Verified 04/11/24 17:02 Vomiting Patient Condition at Discharge: Stable Plan - Discharge Summary Discharge Rx Participant: No New Discharge Prescriptions: No Action No Known Home Medications Discharge Medication List No Known Home Medications 04/11/24 [History] Follow up Appointment(s)/Referral(s): [facility] [Outside] - 04/16/24 9:00 am (with Sawyer Hollis [Primary Care Provider] - 1-2 days Activity/Diet/Wound Care/Special Instructions: [facility] Discharge Info Avoid the use of street drugs and alcohol. Take all medications as prescribed. When you are in need of refills on your medications, please contact your outpatient medical provider and/or outpatient psychiatrist. Please go to your scheduled outpatient appointments for aftercare treatment. If symptoms return or become worse, call the crisis line at or and/or visit the nearest emergency room for assistance. National Suicide and Crisis Lifeline - call or text 798 Discharge Disposition: HOME SELF-CARE
[2024-04-15 19:03] LABS: Urine Alcohol Negative (Negative)
== END 2024-04-14 14:57 | disposition home or self-care (01) | DRG 881 ==
LOC: EC 14:48 → 3MHU 21:58
PROVIDERS: ADMIT Psychiatry & Neurology Psychiatry; ATTEND Psychiatry & Neurology Psychiatry
DX: F43.21 Adjustment disorder with depressed mood (principal); R45.850 Homicidal ideations; E66.9 Obesity, unspecified; F32.9 Major depressive disorder, single episode, unspecified; F84.0 Autistic disorder; R45.1 Restlessness and agitation; F90.9 Attention-deficit hyperactivity disorder, unspecified type; F98.8 Other specified behavioral and emotional disorders with onset usually occurring in childhood and adolescence; Z56.0 Unemployment, unspecified; Z68.33 Body mass index [BMI] 33.0-33.9, adult; Z71.89 Other specified counseling
CPT/HCPCS: 80053; 80061; 80306; 81003; 82075; 83036; 84443; 85025; 87636; 99285

== ENCOUNTER 2024-05-28 03:51 | Emergency (ER) | payer OTHER ==
[2024-05-28 03:57] VITALS: TEMP 97.9
--- NOTE | 2024-05-28 04:19 | ED ---
GI Bleed HPI - General Chief complaint: GI Bleed Stated complaint: GI bleed Time Seen by Provider: 05/28/24 03:53 Source: patient, RN notes reviewed, old records reviewed Mode of arrival: ambulatory - History of Present Illness Initial comments: This is a 28-year-old male concern for blood in the stool blood in the underwear. Concern for GI bleed. Mild abdominal pain no nausea vomiting no blood thinners no history of GI bleed no history of colonoscopy no symptoms lightheadedness dizziness or weakness MD complaint: blood on toilet paper, blood streaked stool -: hour(s) Severity scale (1-10): 1 Quality: painless, cramping Consistency: intermittent Improves with: none Worsens with: none Context: other (0) Associated Symptoms: denies other symptoms - Related Data Home Medications Medication Instructions Recorded Confirmed No Known Home Medications 04/11/24 04/11/24 Allergies Allergy/AdvReac Type Severity Reaction Status Date / Time lactose AdvReac Nausea & Verified 05/28/24 03:57 Vomiting Review of Systems ROS Statement: Those systems with pertinent positive or pertinent negative responses have been documented in the HPI. ROS Other: All systems not noted in ROS Statement are negative. Past Medical History Past Medical History: No Reported History Additional Past Medical History / Comment(s): autism History of Any Multi-Drug Resistant Organisms: None Reported Past Surgical History: No Surgical Hx Reported Additional Past Surgical History / Comment(s): Mole removal Past Anesthesia/Blood Transfusion Reactions: No Reported Reaction Past Psychological History: ADD/ADHD Smoking Status: Never smoker Past Alcohol Use History: Occasional Past Drug Use History: None Reported - Past Family History Mother History Unknown: Yes General Exam General appearance: alert, in no apparent distress Head exam: Present: atraumatic, normocephalic, normal inspection Eye exam: Present: normal appearance, PERRL, EOMI. Absent: scleral icterus, conjunctival injection, periorbital swelling ENT exam: Present: normal exam, mucous membranes moist Neck exam: Present: normal inspection. Absent: tenderness, meningismus, lymphadenopathy Respiratory exam: Present: normal lung sounds bilaterally. Absent: respiratory distress, wheezes, rales, rhonchi, stridor Cardiovascular Exam: Present: regular rate, normal rhythm, normal heart sounds. Absent: systolic murmur, diastolic murmur, rubs, gallop, clicks GI/Abdominal exam: Present: soft, normal bowel sounds. Absent: distended, tenderness, guarding, rebound, rigid Extremities exam: Present: normal inspection, full ROM, normal capillary refill. Absent: tenderness, pedal edema, joint swelling, calf tenderness Back exam: Present: normal inspection Neurological exam: Present: alert, oriented X3, CN II-XII intact Psychiatric exam: Present: normal affect, normal mood Skin exam: Present: warm, dry, intact, normal color. Absent: rash Course Vital Signs 05/28/24 05/28/24 03:55 05:31 Temperature 97.9 F Pulse Rate 66 73 Respiratory 18 16 Rate Blood Pressure 146/100 142/101 O2 Sat by Pulse 98 97 Oximetry - Reevaluation(s) Reevaluation #1: Medical records reviewed Reevaluation #2: No active GI bleed here in the ER Reevaluation #3: Patient informed of results questions answered Reevaluation #4: Was pt. sent in by a medical professional or institution (, PA, MILEAGE CLERK, urgent care, hospital, or snf...) When possible be specific @ -no Did you speak to anyone other than the patient for history (EMS, parent, family, police, friend...)? What history was obtained from this source @ -no Did you review nursing and triage notes (agree or disagree)? Why? @ -agree Are old charts reviewed (outside hosp., previous admission, EMS record, old EKG, old radiological studies, urgent care reports/EKG's, snf records)? Report findings @ -yes Differential Diagnosis (chest pain, altered mental status, abdominal pain women, abdominal pain men, vaginal bleeding, weakness, fever, dyspnea, syncope, headache, dizziness, GI bleed, back pain, seizure, CVA, palpatations, mental health, musculoskeletal)? @ -prior EKG interpreted by me (3pts min.). @ -no X-rays interpreted by me (1pt min.). @ -no CT interpreted by me (1pt min.). @ -no U/S interpreted by me (1pt. min.). @ -no What testing was considered but not performed or refused? (CT, X-rays, U/S, labs)? Why? @ -none What meds were considered but not given or refused? Why? @ -none Did you discuss the management of the patient with other professionals (professionals i.e. DrJonelle, PA, MILEAGE CLERK, lab, RT, psych nurse, social welfare administrator, broadcast traffic coordinator, teacher, light armored vehicle officer, supervisor case loading)? Give summary @ -no Was smoking cessation discussed for >3mins.? @ -no Was critical care preformed (if so, how long)? @ -no Were there social determinants of health that impacted care today? How? (Homelessness, low income, unemployed, alcoholism, drug addiction, transportation, low edu. Level, literacy, decrease access to med. care, prison, rehab)? @ -none Was there de-escalation of care discussed even if they declined (Discuss DNR or withdrawal of care, Hospice)? DNR status @ -no What co-morbidities impacted this encounter? (DM, HTN, Smoking, COPD, CAD, Cancer, CVA, ARF, Chemo, Hep., AIDS, mental health diagnosis, sleep apnea, morbid obesity)? @ -none Was patient admitted / discharged? Hospital course, mention meds given and route, prescriptions, significant lab abnormalities, going to OR and other pertinent info. @ - 28 male history of GI bleed patient presents for GI bleed concern likely hemorrhoid testing is negative exam is unremarkable patient can be discharged home Discharge Undiagnosed new problem with uncertain prognosis? @ -no Drug Therapy requiring intensive monitoring for toxicity (Heparin, Nitro, Insulin, Cardizem)? @ -no Were any procedures done? @ -no Diagnosis/symptom? @ -GI bleed hemorrhoid Acute, or Chronic, or Acute on Chronic? @ -Acute Uncomplicated (without systemic symptoms) or Complicated (systemic symptoms)? @ -Complicated Side effects of treatment? @ -no Exacerbation, Progression, or Severe Exacerbation? @ -exacerbation Poses a threat to life or bodily function? How? (Chest pain, [place], [place], pneumonia, PE, COPD, DKA, ARF, appy, cholecystitis, CVA, Diverticulitis, Homicidal, Suicidal, threat to staff... and all critical care pts) @ -no Reevaluation #5: Differential GI Bleed: Esophageal varices, aortoenteric fistula, Yancy-Ramirez, gastritis, peptic ulcer disease, diverticulosis, inflammatory bowel disease, hemorrhoids, fissure, colitis, malignancy, Meckel's diverticulum, this is not meant to be an all- inclusive list. Medical Decision Making - Medical Decision Making 28 male history of GI bleed patient presents for GI bleed concern likely hemorrhoid testing is negative exam is unremarkable patient can be discharged home - Lab Data Result diagrams: 05/28/24 04:17 05/28/24 04:17 Lab Results 05/28/24 05/28/24 05/28/24 Range/Units 04:17 04:17 04:17 WBC 10.41 H (4.50-10.00) 10*3/uL RBC 5.79 H (4.40-5.60) 10*6/uL Hgb 17.5 H (13.0-17.0) g/dL Hct 51.4 H (39.6-50.0) % MCV 88.8 (80.0-97.0) fL MCH 30.2 (27.0-32.0) pg MCHC 34.0 (32.0-37.0) g/dL Plt Count 276 (140-440) 10*3/uL MPV 9.8 (9.5-12.2) fL Immature Gran % (Auto) 0.8 % Neutrophils % 38.9 % Lymphocytes % 50.1 % Monocytes % 7.1 % Eosinophils % 2.4 % Basophils % 0.7 % Immature Gran # 0.08 H (0.00-0.04) 10*3/uL Neutrophils # 4.05 (1.80-7.70) 10*3/uL Lymphocytes # 5.22 H (0.90-5.00) 10*3/uL Monocytes # 0.74 (0.20-1.00) 10*3/uL Eosinophils # 0.25 (0.04-0.35) 10*3/uL Basophils # 0.07 (0.00-0.10) 10*3/uL Manual Slide Review Performed RBC Morphology Normal PT 10.6 (10.0-12.5) sec INR 0.9 (<1.2) APTT 29.3 (22.0-30.0) sec Sodium 142 (137-145) mmol/L Potassium 4.0 (3.5-5.1) mmol/L Chloride 103 (98-107) mmol/L Carbon Dioxide 29 (22-30) mmol/L Anion Gap 10 mmol/L BUN 10 (9-20) mg/dL Creatinine 0.89 (0.66-1.25) mg/dL Est GFR (CKD-EPI)AfAm >90 (>60 ml/min/1.73 sqM) Est GFR (CKD-EPI)NonAf >90 (>60 ml/min/1.73 sqM) Glucose 75 (74-99) mg/dL Calcium 9.7 (8.4-10.2) mg/dL Magnesium 2.0 (1.6-2.3) mg/dL Total Bilirubin 0.7 (0.2-1.3) mg/dL AST 31 (17-59) U/L ALT 35 (4-49) U/L Alkaline Phosphatase 70 (38-126) U/L Troponin I (0.000-0.034) ng/mL Total Protein 8.1 (6.3-8.2) g/dL Albumin 4.7 (3.5-5.0) g/dL Lipase 121 (23-300) U/L / Range/Units 04:17 WBC (4.50-10.00) 10*3/uL RBC (4.40-5.60) 10*6/uL Hgb (13.0-17.0) g/dL Hct (39.6-50.0) % MCV (80.0-97.0) fL MCH (27.0-32.0) pg MCHC (32.0-37.0) g/dL Plt Count (140-440) 10*3/uL MPV (9.5-12.2) fL Immature Gran % (Auto) % Neutrophils % % Lymphocytes % % Monocytes % % Eosinophils % % Basophils % % Immature Gran # (0.00-0.04) 10*3/uL Neutrophils # (1.80-7.70) 10*3/uL Lymphocytes # (0.90-5.00) 10*3/uL Monocytes # (0.20-1.00) 10*3/uL Eosinophils # (0.04-0.35) 10*3/uL Basophils # (0.00-0.10) 10*3/uL Manual Slide Review RBC Morphology PT (10.0-12.5) sec INR (<1.2) APTT (22.0-30.0) sec Sodium (137-145) mmol/L Potassium (3.5-5.1) mmol/L Chloride (98-107) mmol/L Carbon Dioxide (22-30) mmol/L Anion Gap mmol/L BUN (9-20) mg/dL Creatinine (0.66-1.25) mg/dL Est GFR (CKD-EPI)AfAm (>60 ml/min/1.73 sqM) Est GFR (CKD-EPI)NonAf (>60 ml/min/1.73 sqM) Glucose (74-99) mg/dL Calcium (8.4-10.2) mg/dL Magnesium (1.6-2.3) mg/dL Total Bilirubin (0.2-1.3) mg/dL AST (17-59) U/L ALT (4-49) U/L Alkaline Phosphatase (38-126) U/L Troponin I <0.012 (0.000-0.034) ng/mL Total Protein (6.3-8.2) g/dL Albumin (3.5-5.0) g/dL Lipase (23-300) U/L Disposition Clinical Impression: Lower gastrointestinal hemorrhage, Hemorrhoids Disposition: HOME SELF-CARE Condition: Good Instructions (If sedation given, give patient instructions): Gastrointestinal Bleeding (ED), Hemorrhoids (ED) Is patient prescribed a controlled substance at d/c from ED?: No Referrals: Sawyer Dowell [Primary Care Provider] - 1-2 days Time of Disposition: 05:10
[2024-05-28] MEDS: SODIUM CHLORIDE 0.9% 500 ML 500 ML IV STA (04:40)
[2024-05-28 04:52] LABS: ALT 35 U/L (4-49); AST 31 U/L (17-59); African American GFR (CKD) >90 (>60 ml/min/1.73 sqM); Albumin 4.7 g/dL (3.5-5.0); Alkaline Phosphatase 70 U/L (38-126); Anion Gap 10 mmol/L; Basophils # (A) 0.07 10*3/uL (0.00-0.10); Basophils % (A) 0.7 %; Blood Urea Nitrogen 10 mg/dL (9-20); Calcium 9.7 mg/dL (8.4-10.2); Carbon Dioxide 29 mmol/L (22-30); Chloride 103 mmol/L (98-107); Eosinophils # (A) 0.25 10*3/uL (0.04-0.35); Eosinophils % (A) 2.4 %; Glucose 75 mg/dL (74-99); HCT 51.4 % (39.6-50.0); HGB 17.5 g/dL (13.0-17.0); Lipase 121 U/L (23-300); Lymphocytes # (A) 5.22 10*3/uL (0.90-5.00); Lymphocytes % (A) 50.1 %; MCH 30.2 pg (27.0-32.0); MCV 88.8 fL (80.0-97.0); Mean Platelet Volume 9.8 fL (9.5-12.2); Monocytes # (A) 0.74 10*3/uL (0.20-1.00); Monocytes % (A) 7.1 %; Neutrophils # (A) 4.05 10*3/uL (1.80-7.70); Neutrophils % (A) 38.9 %; Non-African American GFR(CKD) >90 (>60 ml/min/1.73 sqM); Platelet Count 276 10*3/uL (140-440); RBC 5.79 10*6/uL (4.40-5.60); Sodium 142 mmol/L (137-145); Total Bilirubin 0.7 mg/dL (0.2-1.3); Total Protein 8.1 g/dL (6.3-8.2); WBC 10.41 10*3/uL (4.50-10.00)
[2024-05-28 05:12] LABS: INR 0.9 (<1.2); Partial Thromboplastin Time 29.3 sec (22.0-30.0); Prothrombin Time 10.6 sec (10.0-12.5)
[2024-05-28 05:19] LABS: RBC Morphology Normal
[2024-05-28 05:32] VITALS: BP 142/101; PULSE 73; RESP 16
== END 2024-05-28 05:32 | disposition home or self-care (01) ==
LOC: EC 03:51
DX: K92.2 Gastrointestinal hemorrhage, unspecified (principal); K64.9 Unspecified hemorrhoids; Z91.011 Allergy to milk products
CPT/HCPCS: 36415; 80053; 83690; 83735; 84484; 85025; 85610; 85730; 96360; 99284